=== PATIENT | female | born 1970 | race Caucasian/White ===

== ENCOUNTER 2021-05-13 13:13 | Emergency (ER) | payer OTHER ==
[~2021-05-13] VITALS: Ht 157.5 cm; Wt 70.3 kg
[~2021-05-13 13:13] MED LIST: BACTRIM DS TAB1 EACH PO; BENTYL 20 MG TA20 M1 PO; CELEXA40 MG PO; CIPRO250 M1 PO; CIPRO500 MG PO; FLAGYL500 MG PO; OMEPRAZOLE 20 M20 MG PO; ONDANSETRON HCL4 M2 PO; ULTRAM 50MG TAB50 MG PO; ZOCOR20 MG PO
[2021-05-13] MEDS ORDERED: LEXAPRO 10 MG T10 M2 PO (13:27)
[2021-05-13 13:54] LABS: ABSOLUTE BASOPHILS 0.1 thou/uL (0.0-0.2); ABSOLUTE LYMPHOCYTES 1.5 thou/uL (0.8-5.3); ABSOLUTE MONOCYTES 0.4 thou/uL (0.0-1.2); ABSOLUTE NEUTROPHILS 4.2 thou/uL (1.6-8.1); EOSINOPHILS 0.6 %; HEMATOCRIT 41.1 % (37.0-47.0); HEMOGLOBIN 14.1 gm/dL (12.0-15.0); LYMPHOCYTES 24.9 %; MCH 32.7 pg (26.0-34.0); MCHC 34.2 g/dL (28.0-37.0); MCV 95.6 fL (80.0-100.0); MONOCYTES 6.2 %; MPV 7.4 fl. (7.2-11.1); NUCLEATED RBCS 0 /100WBC; PLATELET COUNT* 209 thou/uL (150-400); POLYS 67.3 %; RDW-CV 13.1 % (10.5-14.5); WBC 6.2 thou/uL (4.0-11.0)
[2021-05-13 14:22] LABS: CALCIUM 8.4 mg/dL (8.5-10.1); CREATININE 0.6 mg/dL (0.6-1.3); POTASSIUM 4.2 mmol/L (3.5-5.1); TOTAL BILIRUBIN 0.4 mg/dL (<0.1-1.0)
[2021-05-13 14:45] VITALS: BP 152/80
--- NOTE | 2021-05-14 15:24 | EKG ---
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1970 Requested By: Devin Coy Order Number: [id number] MD: Juancarlos Kaufman Measurements Intervals [place] Rate: 80 P: 40 MI: 155 QRS: 42 QRSD: 96 T: 28 QT: 370 QTc: 427 Interpretive Statements Sinus rhythm Anterior infarct, age indeterminate, possible Baseline wander in lead(s) II Compared to ECG 05/20/2013 11:06:55 Possible myocardial infarct finding now present Electronically Signed On 05-14-2021 15:24:37 CDT by Juancarlos Kaufman [email or web address] <ELECTRONICALLY SIGNED> By: Juancarlos Kaufman MD, FACC 05/14/21 1524 1342 1342 Juancarlos Kaufman MD, [facility] /EPI
== END 2021-05-13 14:45 | disposition home or self-care (01) ==
LOC: M.ERS 13:13
PROVIDERS: Emergency Medicine Emergency Medical Services
DX: R00.2 Palpitations (principal); F41.9 Anxiety disorder, unspecified; F17.210 Nicotine dependence, cigarettes, uncomplicated; Z98.51 Tubal ligation status; Z90.89 Acquired absence of other organs; Z79.899 Other long term (current) drug therapy